=== PATIENT | female | born 1940 | race Caucasian/White ===

== ENCOUNTER 2019-03-30 11:00 | Outpatient (CLI) | payer BC, MEDICARE, SELFPAY ==
--- NOTE | 2019-03-30 11:11 | XR_ITS ---
WS: [id number] LEFT KNEE: 3 VIEW(S) TECHNIQUE: AP, oblique(s) and lateral. HISTORY: KNEE JOINT PAIN LEFT COMPARISON: 10/25/2017 Moderate medial and patellofemoral compartment narrowing with osteophytes. Mild progression since the prior study. Spurring of the tibial spines. No fracture. Small suprapatellar joint effusion. Popliteal artery calcifications. XR/XR knee LT 3V* [id number] IMPRESSION: 1. 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 2. No fracture. 3. Small suprapatellar effusion.
== END 2019-03-30 11:01 | disposition home or self-care (01) ==
LOC: RADWPI 11:09
PROVIDERS: Family Provider Internal Medicine; PCP Internal Medicine; Visit Provider Nurse Practitioner Family
DX: M25.462 Effusion, left knee (principal); M17.12 Unilateral primary osteoarthritis, left knee
CPT/HCPCS: 73562

== ENCOUNTER 2019-09-09 07:04 | Emergency (ER) | payer BC, SELFPAY ==
[2019-09-09] VITALS (8 sets, daily range): BP systolic 122–230; BP diastolic 79–125; PULSE 59–109; RESP 16–20; TEMP 36.5; O2SAT 92–100; BMI 28.5
--- NOTE | 2019-09-09 07:14 | XRR_ITS ---
PROCEDURE INFORMATION: Exam: XR Abdomen, 3 or More Views Exam date and time: 09/09/2019 8:36 AM Age: 79 years old Clinical indication: Nausea and other: Constipation, no bowel movement x 9 day; Prior surgery; Surgery date: 6+ months; Surgery type: Hyst; Patient HX: C/O nausea, constipation-no bowel movement x 9 days, abd pain; Additional info: Abd pain, no bm x 9 days TECHNIQUE: Imaging protocol: XR of the abdomen. Views: 3 or more views. COMPARISON: CT ABDOMEN/PELVIS 09/09/2019 8:47:52 AM FINDINGS: Heart/Mediastinum: The cardiac silhouette is not enlarged. The mediastinal contours are normal. Lungs: No pneumonia or pulmonary edema. Pleural space: No pleural effusion or pneumothorax. Gastrointestinal tract: No dilated gas-filled loops of bowel. No suspicious air-fluid levels. The large amount of stool demonstrated in the rectum on the concurrent CT ABDOMEN/PELVIS is not radiographically evident. However, a moderate amount of stool is present in the proximal colon. Intraperitoneal space: No pneumoperitoneum. Vasculature: The thoracic aorta is atherosclerotic. Bones/joints: There are multilevel bridging osteophytes in the thoracic spine. Multilevel facet arthropathy in the lower lumbar spine. XR/XR acute abdomen series [id number] IMPRESSION: No acute radiographic abnormality. See the separate report for the concurrent CT ABDOMEN/PELVIS.
--- NOTE | 2019-09-09 07:15 | ECG_ITS ---
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 Measurements Intervals [place] Rate: 99 P: 61 [place]: 133 QRS: 29 QRSD: 93 T: 35 QT: 357 QTc: 459 Interpretive Statements SINUS RHYTHM No previous ECG available for comparison Electronically Signed On 09-09-2019 16:48:55 CDT by Sussy Caceres M.D. [id number]
--- NOTE | 2019-09-09 07:16 | PC.NURSE ---
Patient educated that a urine sample is needed bedside commode placed at patients bedside. Patient reports that she is unable to go to the restroom at this time. Will continue to monitor patient.
[2019-09-09] MEDS: LORazepam 2 mg/mL INJ 1 mL 0.5 MG IVP (07:26)
[2019-09-09] MEDS: sodium chloride 0.9% 1,000 ML 999 ML IV ×2 (07:29→10:30)
--- NOTE | 2019-09-09 07:38 | ED_ITS ---
HPI - Abdominal Pain General: Chief Complaint: Abdominal Pain Stated Complaint: ABD PAIN Time Seen by Provider: 09/09/19 07:08 History of Present Illness: HPI narrative: This patient is a 79-year-old female presenting with abdominal pain. She had a total knee replacement on September 02. She says that since that time she has been vomiting and has not been able to keep anything down. She also has not had a bowel movement. Yesterday she started having lower abdominal pain. She has been sitting on the commode since 4:00 this morning straining to have a bowel movement. She has intermittent severe cramping in her lower abdomen. She has not had any prior abdominal surgeries. Her surgery was in [place]. Her left leg is markedly swollen. She is in quite a bit of distress and is not able to give a detailed history on my initial evaluation. MD elicited complaint: abdominal pain Pertinent past history: none Onset (ago): day(s) (2) Pain Consistency: constant and colicky Location: Pelvis Severity: severe Quality: cramping Associated Symptoms: Reports bloating, constipation, GI cramping, nausea and vomiting; Denies chills and fever(s) Review of Systems General: Reports: 10 or more systems reviewed and unremarkable except in HPI and below Const: Reports: malaise; Denies: fever(s), chills or fatigue Eyes: Denies: change in vision ENMT: Denies: odynophagia Card: Denies: chest pain or swelling of feet/ankles Resp: Denies: dyspnea, productive cough or non-productive cough GI: Reports: abdominal pain, nausea, vomiting, constipation, bloating and GI cramping : Denies: flank pain or difficulty voiding Musc: Denies: neck pain or back pain Skin/Breast: Denies: rash Neuro: Denies: headache(s), numbness in extremities or weakness in extremities Miguel/Lymph: Denies: easy bruising or easy bleeding PFSH ED PFSH: Social History Smoking and tobacco status: never smoked Alcohol intake: never Physical Exam Const: COMMON NORMALS: patient oriented x3, no limitations and alert GENERAL APPEARANCE: cooperative, in distress and anxious HENMT: HEAD & SCALP: normal to inspection FACE & SINUS: normal facial exam Eye: GENERAL EYE: appearance normal, both eyes and all related structures Neck/C-Spine: COMMON NORMALS: supple, no meningeal signs and no JVD Chest: COMMONS NORMALS: normal inspection of the chest Resp: COMMON NORMALS: normal respiratory effort, No use of accessory muscles and clear to auscultation bilaterally AUSCULTATION: clear to auscultation bilaterally Cardio: COMMON NORMALS: no JVD, regular rate, regular rhythm and No murmurs present (Cardio) RATE: regular rate RHYTHM: regular rhythm GI: COMMON NORMALS: Normal to inspection, nondistended, normoactive bowel sounds present and non-tender INSPECTION: Yes normal to inspection A USCULTATION: Yes Hypoactive bowel sounds present PALPATION: Yes Firmness to palpation present (GI) and Yes Tenderness to palpation present (GI) (Mild tenderness in the lower quadrants bilaterally) Back/Pelvis: COMMON NORMALS: thoracic and lumbar spine normal to inspection Extremity: NARRATIVE EXTREMITY EXAM: Left lower extremity markedly swollen, with a GABBY hose to the thigh. Dressing over the surgical incision extends from the mid thigh down to the mid lower leg. Neuro: COMMON NORMALS: patient oriented x3, moves all extremities, no focal motor deficits and no sensory deficits noted SENSORIUM/ORIENTATION: Yes alert MENINGEAL SIGNS: Yes no meningeal signs Psych: COMMON NORMALS: mental status grossly normal, cooperative and normal affect Skin: COMMON NORMALS: no rashes or lesions noted and turgor normal GENERAL SKIN EXAM: no rashes or lesions noted and turgor normal Course ED course: Patient was in quite a bit of distress initially. Pain meds helped. Lactate was elevated and a CT was done to rule out serious intra- abdominal pathology, but fortunately only showed fecal impaction. She was manually disimpacted, and then had an enema as well with relief of her symptoms. The lactate was rechecked and was decreasing. I wanted to get an US of her leg, due to swelling, but she had been instructed not to remove the compression stocking and she didn't want the study done. Vital Signs: Vital signs: Vital Signs Temperature 97.7 F 09/09/19 07:16 Pulse Rate 72 09/09/19 14:14 Respiratory Rate 18 09/09/19 14:14 Blood Pressure 185/125 09/09/19 14:14 Pulse Oximetry 100 09/09/19 14:14 MDM - Abdominal Pain Lab Data: Labs: Lab Results 09/09/19 09/09/19 09/09/19 Range/Units 07:30 07:30 07:30 WBC 10.7 H (4.0-10.0) 10^3/ uL RBC 4.13 (4.1-5.3) 10^6/u L Hgb 11.9 (11.5-15.3) g/dL Hct 36.6 L (37.0-47.0) % MCV 88.6 (81-99) fL MCH 28.8 (28.0-34.0) pg MCHC 32.5 (30.0-36.0) g/dL RDW 14.7 (12.1-15.1) % Plt Count 356 (130-400) 10^3/c mm MPV 10.1 (7.4-10.4) fL Neut % (Auto) 79.2 % Lymph % (Auto) 13.8 % [place] % (Auto) 5.0 % Eos % (Auto) 0.6 % Baso % (Auto) 0.7 % Neut # (Auto) 8.45 H (1.8-7.7) 10^3/u L Lymph # (Auto) 1.5 (0.8-4.8) 10^3/u L [place] # (Auto) 0.5 (0.2-0.9) 10^3/u L Eos # (Auto) 0.1 (0.0-0.8) 10^3/u L Baso # (Auto) 0.1 (0.0-0.1) 10^3/u L Nucleated RBC % (a uto) 0 % Nucleated RBCs # 0.0 /100WBC Sodium 137 (136-145) mmol/L Potassium 3.4 L (3.5-5.1) mmol/L Chloride 96 L (98-107) mmol/L Carbon Dioxide 20 L (22-29) mmol/L Anion Gap 24.4 H (5-19) BUN 12 (8-23) mg/dL Creatinine 1.1 H (0.5-0.9) mg/dL Glucose 204 H (65-115) mg/dL Calculated Osmolal ity 286 (285-295) mOsm/k g Lactate 5.1 H* (0.5-2.2) mmol/L Calcium 9.1 (8.5-10.5) mg/dL Total Bilirubin 1.8 H (0.15-1.2) mg/dL AST 113 H (0-32) U/L ALT 113 H (0-33) U/L Alkaline Phosphata se 235 H (35-105) IU/L Total Protein 7.6 (6.6-8.7) g/dL Albumin 3.9 (3.5-5.2) g/dL Globulin 3.7 (1.3-4.6) g/dL Lipase 31 (13-60) U/L 09/09/19 Range/Units 11:53 WBC (4.0-10.0) 10^3/ uL RBC (4.1-5.3) 10^6/u L Hgb (11.5-15.3) g/dL Hct (37.0-47.0) % MCV (81-99) fL MCH (28.0-34.0) pg MCHC (30.0-36.0) g/dL RDW (12.1-15.1) % Plt Count (130-400) 10^3/c mm MPV (7.4-10.4) fL Neut % (Auto) % Lymph % (Auto) % [place] % (Auto) % Eos % (Auto) % Baso % (Auto) % Neut # (Auto) (1.8-7.7) 10^3/u L Lymph # (Auto) (0.8-4.8) 10^3/u L [place] # (Auto) (0.2-0.9) 10^3/u L Eos # (Auto) (0.0-0.8) 10^3/u L Baso # (Auto) (0.0-0.1) 10^3/u L Nucleated RBC % (a uto) % Nucleated RBCs # /100WBC Sodium (136-145) mmol/L Potassium (3.5-5.1) mmol/L Chloride (98-107) mmol/L Carbon Dioxide (22-29) mmol/L Anion Gap (5-19) BUN (8-23) mg/dL Creatinine (0.5-0.9) mg/dL Glucose (65-115) mg/dL Calculated Osmolal ity (285-295) mOsm/k g Lactate 3.4 H (0.5-2.2) mmol/L Calcium (8.5-10.5) mg/dL Total Bilirubin (0.15-1.2) mg/dL AST (0-32) U/L ALT (0-33) U/L Alkaline Phosphata se (35-105) IU/L Total Protein (6.6-8.7) g/dL Albumin (3.5-5.2) g/dL Globulin (1.3-4.6) g/dL Lipase (13-60) U/L EKG Data ^: EKG 1: EKG interpretation time: 07:38 Interpretation: Sinus rhythm, rate 99. Normal intervals. Normal axis. Normal ST segments. Discharge Plan Discharge Patient Disposition: Home, Self-Care Clinical Impression: Fecal impaction of rectum, Obstipation Condition: Stable Prescriptions: New Miralax 17 gram/dose powder 17 gm PO DAILY PRN (Reason: constipation) Qty: 510 RF: 0 magnesium citrate Solution 150 ml PO ONCE PRN (Reason: constipation) Qty: 296 RF: 0 No Action clonidine HCl 0.1 mg tablet 0.1 mg PO TID RF: 0 nifedipine 30 mg tablet extended release 30 mg PO DAILY RF: 0 metoprolol succinate 100 mg tablet extended release 24 hr 100 mg PO DAILY RF: 0 lisinopril 30 mg tablet 30 mg PO DAILY RF: 0 oxycodone 5 mg tablet 5 mg PO Q4H PRN (Reason: Pain) RF: 0 Vitamin D3 25 mcg (1,000 unit) Capsule 25 mcg PO DAILY RF: 0 Eliquis 2.5 mg tablet 2.5 mg PO BID RF: 0 Stool Softener 1 - 2 cap PO PRN RF: 0 Tylenol Extra Strength 500 - 1,000 mg PO PRN RF: 0 Vitamin B-12 1 tab PO DAILY RF: 0 Discharge Orders: Discharge Order (Routine); Ordered 09/09/19 Ordered By: Jacy Garrett Referrals: Edel Celis MD [Primary Care Provider] - Discharge Diet: Usual diet Discharge Activity: Resume usual activity Patient Instructions: Constipation (ED) Activity Restrictions/Additional Instructions: Continue taking her stool softener. Be sure to drink plenty of fluids. Get magnesium citrate which is available [id number]. Drink half the bottle today to help move the rest of the stool out of your bowels. Please also get MiraLAX which is also available [id number] and use that daily until you are off the pain medications. Return to the emergency department if severe abdominal pain, fever, blood in the stool. Discharge Date/Time: 09/09/19 14:18 Coding Level of Care Code ED Telephone Answerer for Shweta Fwjames Exam Comprehensive
[2019-09-09 07:39] LABS: Basophils # 0.1 10^3/uL (0.0-0.1); Basophils % 0.7 %; Eosinophils # 0.1 10^3/uL (0.0-0.8); Eosinophils % 0.6 %; Hematocrit 36.6 % (37.0-47.0); Hemoglobin 11.9 g/dL (11.5-15.3); Lymphocytes # 1.5 10^3/uL (0.8-4.8); Lymphocytes % 13.8 %; Mean Corpuscular HGB Conc 32.5 g/dL (30.0-36.0); Mean Corpuscular Hemoglobin 28.8 pg (28.0-34.0); Mean Corpuscular Volume 88.6 fL (81-99); Mean Platelet Volume 10.1 fL (7.4-10.4); Monocytes # 0.5 10^3/uL (0.2-0.9); Neutrophils # 8.45 10^3/uL (1.8-7.7); Neutrophils % 79.2 %; Nucleated Red Blood Cells % 0 %; Platelet Count 356 10^3/cmm (130-400); Red Blood Count 4.13 10^6/uL (4.1-5.3); Red Cell Distribution Width 14.7 % (12.1-15.1); White Blood Count 10.7 10^3/uL (4.0-10.0)
[2019-09-09] MEDS: dicyclomine 20 mg Tablet PO (07:45)
[2019-09-09 07:54] LABS: Alanine Aminotransferase 113 U/L (0-33); Albumin Level 3.9 g/dL (3.5-5.2); Alkaline Phosphatase 235 IU/L (35-105); Anion Gap 24.4 (5-19); Aspartate Amino Transferase 113 U/L (0-32); Blood Urea Nitrogen 12 mg/dL (8-23); Calcium 9.1 mg/dL (8.5-10.5); Carbon Dioxide 20 mmol/L (22-29); Chloride 96 mmol/L (98-107); Globulin 3.7 g/dL (1.3-4.6); Glucose 204 mg/dL (65-115); Lipase 31 U/L (13-60); Osmolality Calculated 286 mOsm/kg (285-295); Potassium 3.4 mmol/L (3.5-5.1); Sodium 137 mmol/L (136-145); Total Bilirubin 1.8 mg/dL (0.15-1.2); Total Protein 7.6 g/dL (6.6-8.7)
[2019-09-09 07:59] LABS: Lactate (Lactic Acid level) 5.1 mmol/L (0.5-2.2)
--- NOTE | 2019-09-09 08:16 | CTR_ITS ---
PROCEDURE INFORMATION: Exam: CT Abdomen And Pelvis With Contrast Exam date and time: 09/09/2019 8:20 AM Age: 79 years old Clinical indication: Abdominal pain; Acute; Prior surgery; Surgery date: 6+ months; Surgery type: Hyst appy; Additional info: Abdominal pain, elevated lactic acid TECHNIQUE: Imaging protocol: Computed tomography of the abdomen and pelvis with intravenous contrast. Radiation optimization: All CT scans at this facility use at least one of these dose optimization techniques: automated exposure control; mA and/or kV adjustment per patient size (includes targeted exams where dose is matched to clinical indication); or iterative reconstruction. Contrast material: VISI 320; Contrast volume: 95 ml; Contrast route: INTRAVENOUS (IV); COMPARISON: CR XR acute abdomen series [id number] 09/09/2019 8:20 AM RADIATION DOSE METRICS: Total DLP (mGy-cm): 669.62 FINDINGS: Lungs: No acute basilar lung consolidation. Liver: There is fatty change involving the liver parenchyma. Gallbladder and bile ducts: The gallbladder is distended. No calcified gallstones. No gallbladder wall thickening. No pericholecystic fluid or inflammation. No biliary ductal dilatation. Pancreas: No pancreatic mass. No peripancreatic inflammation. No pancreatic ductal dilation. Spleen: Calcified granulomas in a nonenlarged spleen. Adrenals: No adrenal mass. Kidneys and ureters: No hydronephrosis. No nephrolithiasis. Indeterminate 4 mm low-attenuation lesion in the right kidney. Stomach and bowel: Large amount of stool in the rectum. The rectum is distended up to approximately 6.5 cm in diameter. Lesser amount of stool in the colon. No sign of diverticulitis or colitis. No bowel wall thickening or pneumatosis intestinalis. Appendix: Prior appendectomy. Intraperitoneal space: No ascites or pneumoperitoneum. Vasculature: No abdominal aortic aneurysm. No iliac or common femoral artery aneurysm. The mesenteric arteries are patent. The mesenteric, portal, and hepatic veins are patent. Lymph nodes: No enlarged lymph nodes. Bladder: The urinary bladder is small in volume. No bladder calculus. Reproductive: Prior hysterectomy. Bones/joints: Multilevel facet arthropathy in the lower lumbar spine. Soft tissues: No acute soft tissue abnormality. CT/CT abdomen pelvis w con* [id number] IMPRESSION: 1. Rectal fecal impaction. 2. No colonic diverticulosis or colitis. COMMENTS: Consistent with the [employer]'s Incidental Findings Committee white paper (J Am Barbi Radiol 2018): Any incidental renal lesion less than 1.0 cm or classified as too small to characterize, or any incidental cystic renal lesion characterized as simple-appearing, is likely benign. No follow-up imaging is recommended for these lesions per consensus recommendations based on imaging criteria. Radiation Dose CTDIVOL = (mGy): DLP = 669.62 (mGy-cm)
--- NOTE | 2019-09-09 08:25 | PC.NURSE ---
Patient had bowel movement in the hat when trying to provide urine sample.
[2019-09-09] MEDS: ondansetron 2 mg/ML SDV 2 mL 4 MG IVP ×2 (08:33→14:05)
[2019-09-09] MEDS: HYDROmorphone 1 mg/mL INJ 1 mL 0.5 MG IVP ×2 (08:34→14:09)
[2019-09-09] MEDS: iodixanol 320 mg/mL 100mL Btl IV (08:56)
--- NOTE | 2019-09-09 10:55 | PC.NURSE ---
Soap Suds enema administered at this time.
--- NOTE | 2019-09-09 11:34 | NUR.SHIFT ---
Digital disimpaction completed at this time.
--- NOTE | 2019-09-09 11:34 | PC.NURSE ---
Digital impaction done by Dr. Garrett at this time.
[2019-09-09 12:10] LABS: Lactate (Lactic Acid level) 3.4 mmol/L (0.5-2.2)
[2019-09-09] MEDS: cloNIDine 0.1 mg Tablet PO (14:00)
== END 2019-09-09 14:18 | disposition home or self-care (01) ==
PROVIDERS: Emergency Provider Emergency Medicine; PCP Internal Medicine
DX: K56.41 Fecal impaction (principal); Z79.01 Long term (current) use of anticoagulants
CPT/HCPCS: 12345; 36415; 45915; 74022; 74177; 80053; 83605; 83690; 85025; 93005; 96361; 96374; 96375; 96376; 99284; J1170; J2060; J2405; J7030; Q9967

== ENCOUNTER 2020-03-23 10:36 | Outpatient (CLI) | payer BC, MEDICARE, SELFPAY ==
--- NOTE | 2020-03-23 10:44 | USCV_ITS ---
Carla Edward Age: 80 Gender: F : 1940 Exam Date: 03/23/2020 10:57 Ordering Phys: Edel Celis MD Technologist: Lucia Lentz [place] [facility] [place]: H/O LT LEG DVT HISTORY: Lower extremity swelling. PROCEDURES: Venous duplex imaging was performed in only the left lower extremity. The following venous structures were evaluated: common femoral vein, profunda vein, proximal portion of the greater saphenous vein, superficial femoral vein, and the popliteal vein. In addition, the posterior tibial and peroneal trunk were evaluated. FINDINGS: Normal 2-D Doppler and augmentation and compressibility throughout the lower extremity venous structures. Additional imaging through the proximal calf veins also reveals no thrombus. Limited evaluation of the greater saphenous vein is patent with no thrombus. CONCLUSIONS No evidence of left lower extremity DVT. Wiley Vincent MD (Electronically Signed) Final Date: 23 March 2020 12:18 S
== END 2020-03-23 10:37 | disposition home or self-care (01) ==
LOC: RAD 10:38
PROVIDERS: PCP Internal Medicine; Visit Provider Internal Medicine
DX: M79.89 Other specified soft tissue disorders (principal); Z86.718 Personal history of other venous thrombosis and embolism
CPT/HCPCS: 93971

== ENCOUNTER 2020-09-14 07:47 | Outpatient (CLI) | payer BC, MEDICARE, SELFPAY ==
[2020-09-14 08:15] VITALS: BMI 26.4
--- NOTE | 2020-09-14 08:43 | NMCV_ITS ---
NM mague perf SPECT r/s* [id number] Carla Edward Age: 80 Gender: F : 1940 Exam Date: 09/14/2020 08:43 Ordering Phys: Edel Celis MD Technologist: CHIARA Read Exam Location: [facility] Indications: CHEST PAIN STRESS TEST Please see separate stress test report in [facility] for full findings IMAGE PROTOCOL Rest/Stress 1 Lexiscan Day Radiopharmaceutical Dose (mCi) Administration Site Administered by Rest: Tc-99m 10.8 IV Nicol Yu, [employer] Sestamibi Stress:Tc-99m 32.0 IV Nicol Yu, [employer] Sestamibi Rest: 14-Sep-2020 60 Discovery 630 Stress: 14-Sep-2020 30 Discovery 630 0.4mg Lexiscan. Images obtained in supine and prone position. SPECT RESULTS Technical Quality: Excellent Raw Data Analysis: Normal Image Corrections: No attenuation or motion correction applied Summed Stress Score: 0 Summed Rest Score: 0 Summed Difference Score: 0 PERFUSION FINDINGS There is homogenous radiotracer uptake throughout the myocardium. No evidence of ischemia seen. FUNCTIONAL RESULTS (calculated via Gated SPECT) Stress Image LV EF (%): 89 Stress EDV (mL):56 TID: 0.94 Stress ESV (mL):6 FUNCTIONAL FINDINGS: There is normal left ventricular systolic function. IMPRESSIONS 1. Normal myocardial perfusion imaging with no evidence of ischemia. 2. LV systolic function is normal Rene Rausch MD (Electronically Signed) Final Date: 14 September 2020 13:13 S
--- NOTE | 2020-09-14 08:43 | ECG_ITS ---
[facility] Test Date: 2020-09-14 Pat Name: Carla Edward Department: Room: Gender: Female Patients Transporter: : 1940 Requested By: Edel Troncoso Order Number: [id number] Nel MD: Rene Rausch M.D. Interpretive Statements NAME OF STUDY: LEXISCAN SESTAMIBI STRESS TEST INDICATION: [Chest Pain, ] Procedure: At the baseline, the blood pressure was 155/75 mmHg with a heart rate of 57 bpm. The electrocardiogram sinus bradycardia, normal axis with normal ST and T's. The Lexiscan was infused over a period of 20 seconds. A total of 0.4 mg of Lexiscan was infused. The stress phase was continued for a total of 5 minutes. Heart rate was at the end of stress phase was 72 bpm and a blood pressure of 162/75 mmHg. The EKG at the peak infusion revealed since normal sinus rhythm with no significant ST-T wave changes. Sestamibi was injected 20 seconds after the Lexiscan infusion. Blood pressure at the end of recovery phase was 162/75 mmHg with a heart rate of 72 bpm. Conclusion: 1. Normal EKG response to Lexiscan infusion 2. No Lexiscan induced chest pain or cardiac arrhythmia. 3. Normal blood pressure and heart rate response. 4. Sestamibi/sestamibi perfusion scan pending; see separate report. Electronically Signed On 09-21-2020 13:37:14 CDT by Rene Rausch M.D. [email or web address]
[2020-09-14 10:12] VITALS: BP 160/77; PULSE 70
== END 2020-09-14 07:48 | disposition home or self-care (01) ==
LOC: RAD 07:54 → CDL 08:39
PROVIDERS: PCP Internal Medicine; Visit Provider Internal Medicine
DX: R07.9 Chest pain, unspecified (principal)
CPT/HCPCS: 78452; 93017; A9500

== ENCOUNTER 2021-03-08 16:05 | Outpatient (CLI) | payer BC, MEDICARE, SELFPAY ==
--- NOTE | 2021-03-08 16:24 | XR_ITS ---
WS: [id number] XR knee RT 3V* [id number] REASON FOR EXAM: RT. KNEE PAIN FINDINGS: No fracture or focal bone lesion. Moderate to severe narrowing of the medial knee joint space with tibial subchondral sclerosis and mar ginal osteophytes. Mild narrowing of the lateral knee joint space. Mild medial shift of the femur. Moderate narrowing of the patellofemoral joint space with marginal osteophytes. XR/XR knee RT 3V* [id number] IMPRESSION: Osteoarthritis of the right knee as above.
== END 2021-03-08 16:06 | disposition home or self-care (01) ==
LOC: RAD 16:12
PROVIDERS: PCP Internal Medicine; Visit Provider Internal Medicine
DX: M17.11 Unilateral primary osteoarthritis, right knee (principal)
CPT/HCPCS: 73562

== ENCOUNTER 2021-06-09 08:30 | Emergency (ER) | payer BC, MEDICARE, SELFPAY ==
[2021-06-09] VITALS (9 sets, daily range): BP systolic 172–230; BP diastolic 82–100; PULSE 61–72; RESP 17–31; TEMP 37.5; O2SAT 91–96; BMI 24.9
--- NOTE | 2021-06-09 08:53 | XR_ITS ---
WS: [id number] Portable AP upright chest, 06/09/2021 Clinical Data: Hypertension Comparison: Portable chest, 09/01/2009. Findings: No nodules, masses or effusions are seen. The heart is normal. The pulmonary vascularity is not increased. No pneumonia or pneumothorax is seen. The aortic arch and descending thoracic aorta s how calcification and mild tortuosity. There is degenerative change of the thoracic vertebral bodies. XR/XR chest 1V portable [id number] Impression: Atherosclerosis.
--- NOTE | 2021-06-09 08:53 | CTR_ITS ---
PROCEDURE INFORMATION: Exam: CT Neck With Contrast Exam date and time: 06/09/2021 11:55 AM Age: 81 years old Clinical indication: Other: Throat swelling TECHNIQUE: Imaging protocol: Computed tomography images of the neck with contrast. Radiation optimization: All CT scans at this facility use at least one of these dose optimization techniques: automated exposure control; mA and/or kV adjustment per patient size (includes targeted exams where dose is matched to clinical indication); or iterative reconstruction. Contrast material: VISIPAQUE 320; Contrast volume: 75 ml; Contrast route: INTRAVENOUS (IV); COMPARISON: CT head wo con* [id number] 06/09/2021 11:50 AM RADIATION DOSE METRICS: Total DLP (mGy-cm): 420.62 FINDINGS: Nasopharynx: Unremarkable. Oropharynx: Unremarkable. No significant tonsillar enlargement. Hypopharynx: Unremarkable. Larynx: Unremarkable. Normal epiglottis. Retropharyngeal space: Unremarkable. Submandibular/Parotid glands: Normal. Glands are normal in size. Thyroid: Normal. No enlarged or calcified nodules. Lymph nodes: Subcentimeter lymph nodes seen in the neck. 8 mm right supraclavicular lymph node. Trachea: Visualized trachea is unremarkable. Lungs: Mild apical pleural thickening. Bones/joints: Unremarkable. No acute fracture. Soft tissues: Unremarkable. No significant soft tissue swelling. CT/CT neck w con* [id number] IMPRESSION: No acute findings.
--- NOTE | 2021-06-09 08:53 | ECG_ITS ---
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 Measurements Intervals [place] Rate: 62 P: 55 AL: 145 QRS: 53 QRSD: 86 T: 42 QT: 351 QTc: 358 Interpretive Statements SINUS RHYTHM NONSPECIFIC T-WAVE ABNORMALITY Compared to ECG 09/09/2019 07:45:30 T-wave abnormality now present Electronically Signed On 06-09-2021 18:18:06 CDT by Hillary Colon M.D. [id number]
--- NOTE | 2021-06-09 08:53 | CTR_ITS ---
PROCEDURE INFORMATION: Exam: CT Head Without Contrast Exam date and time: 06/09/2021 11:50 AM Age: 81 years old Clinical indication: Altered mental status/memory loss; Confusion or disorientation; Prior surgery; Additional info: Confusion and hypertensive urgency TECHNIQUE: Imaging protocol: Computed tomography of the head without contrast. Radiation optimization: All CT scans at this facility use at least one of these dose optimization techniques: automated exposure control; mA and/or kV adjustment per patient size (includes targeted exams where dose is matched to clinical indication); or iterative reconstruction. COMPARISON: CT head wo con* [id number] 09/05/2016 9:15 AM RADIATION DOSE METRICS: Total DLP (mGy-cm): 736.59 FINDINGS: Brain: Mild atrophy and small vessel ischemic disease is stable. There is no intracranial blood. Cerebral ventricles: No ventriculomegaly. Paranasal sinuses: Mild ethmoidal air cell disease. Mastoid air cells: Visualized mastoid air cells are well aerated. Bones/joints: Unremarkable. No acute fracture. Soft tissues: Unremarkable. CT/CT head wo con* [id number] IMPRESSION: No acute intracranial abnormality.
--- NOTE | 2021-06-09 08:55 | PC.NURSE ---
informed libby riddhi of bp of 230/109 while at bedside. he verbalized understanding no further orders.
--- NOTE | 2021-06-09 08:57 | W.ED.URI ---
HPI - URI/Sore Throat General: Chief Complaint: Shortness of Breath/Dyspnea Stated Complaint: EXCESSIVE NASAL DRAINAGE Time Seen by Provider: 06/09/21 08:41 History of Present Illness: Patient is an 81-year-old female comes to the ED via EMS with throat swelling and nasal drainage. Patient currently lives at home and has a daughter that frequently comes to her house to help take care of her. Symptoms started several days ago. She reports having some throat swelling that makes it difficult sometimes for her to swallow but denies any difficulty breathing. She also reports having white patches on her tongue and throat that she can scrape off with a toothbrush. Sinus congestion and nasal drainage has been going on for several days as well and states she feels a lot of drainage going down her throat. Denies any fever, chills, cough, shortness of breath, chest pain, abdominal pain, nausea/vomiting, bladder or bowel symptoms. Patient's daughter was present in the room and helps provide a little more history. She stated that patient's confusion was her biggest concern. She also gave me some history on patient. Patient has a history of trigeminal neuralgia and had a flareup of it approximately a week ago. She saw her neurologist and is currently being treated. Due to the pain when eating she has had some decreased food and fluid intake over the past several days. Patient's daughter also noted that it appears that patient has been forgetting to take some of her blood pressure medications daily. She noticed that there were couple days in her daily pill container that she had not taken any of her blood pressure meds. Patient admits to forgetting to take her blood pressure medications at night on occasion. Patient occasionally gives answers that are inappropriate and seems a little confused at times. she is alert awake and oriented x3. Associated symptoms: Reports nasal congestion; Deny abdominal pain, chills, chest pain, diarrhea, fever(s), headache(s), nausea or vomiting Review of Systems Const: Denies: fever(s), chills or fatigue Eyes: Denies: change in vision or eye discomfort ENMT: Reports: uvular edema, odynophagia, oral sores (White patches on tongue and throat), nasal discharge, nasal congestion and post nasal drip; Denies: throat pain Card: Denies: chest pain, palpitations, edema, swelling of feet/ankles, dyspnea on exertion or orthopnea Resp: Denies: dyspnea, productive cough or non-productive cough GI: Denies: abdominal pain, nausea, vomiting, diarrhea, constipation or hematochezia : Denies: flank pain, dysuria or hematuria Musc: Denies: neck pain, back pain or extremity swelling Skin/Breast: Denies: rash or new lesions Neuro: Reports: confusion; Denies: headache(s), numbness in extremities or weakness in extremities PFSH ED PFSH: Medical History (Updated 06/10/21 @ 10:25 by DIPESH Davalos) Hypertension Trigeminal neuralgia Surgical History (Updated 06/10/21 @ 10:25 by DIPESH Davalos) No pertinent past surgical history Social History Smoking and tobacco status: never smoked Alcohol intake: never Physical Exam Const: COMMON NORMALS: patient oriented x3 and alert GENERAL APPEARANCE: cooperative HENMT: COMMON NORMALS: normocephalic HEAD & SCALP: normocephalic MOUTH: moist mucous membranes abnormal Details: parched THROAT: posterior oropharynx abnormal edema and other (white patches) and uvular edema Eye: COMMON NORMALS: Equal, round and reactive pupils present, EOMs intact bilaterally and conjunctivae normal CONJUNCTIVA: Yes conjunctivae normal PUPIL: Yes Equal, round and reactive pupils present Neck/C-Spine: COMMON NORMALS: supple GENERAL: Yes normal visual inspection Resp: COMMON NORMALS: normal respiratory effort, No retractions, No use of accessory muscles and clear to auscultation bilaterally AUSCULTATION: clear to auscultation bilaterally Cardio: COMMON NORMALS: regular rate, regular rhythm, S1 normal heart sound present, S2 normal heart sound present, No gallops present (Cardio), No clicks present (Cardio), No murmurs present (Cardio) and Peripheral pulses 2+ throughout RATE: regular rate RHYTHM: regular rhythm HEART SOUNDS: S1 normal heart sound present and S2 normal heart sound present PERIPHERAL PULSES: Peripheral pulses 2+ throughout GI: COMMON NORMALS: Normal to inspection, nondistended, normoactive bowel sounds present, Soft to palpation, non-tender and no masses PALPATION: Yes Soft to palpation : COMMON NORMALS: Yes no CVA tenderness BLADDER/KIDNEY EXAM: Yes no CVA tenderness Back/Pelvis: COMMON NORMALS: no CVA tenderness Extremity: COMMON NORMALS: normal to inspection and no pedal edema Neuro: COMMON NORMALS: patient oriented x3, CN's II-XII intact bilaterally and moves all extremities SENSORIUM/ORIENTATION: Yes alert SPEECH: speech normal OTHER: Patient occasionally seemed confused and would not always answer my questions appropriately. If I readdress the question to her she would then give me correct response. She is awake alert and oriented x3 Skin: GENERAL SKIN EXAM: dry skin Course Vital Signs: Vital signs: Vital Signs Temperature 99.5 F 06/09/21 08:36 Pulse Rate 66 06/09/21 14:30 Respiratory Rate 24 H 06/09/21 14:30 Blood Pressure 172/92 06/09/21 14:30 Pulse Oximetry 91 06/09/21 14:30 MDM - URI/Sore Throat Medical Decision Making Patient is an 81-year-old female who comes to the ED with some throat swelling, nasal drainage and mild confusion. Patient does live at home with daughter. Vitals are stable. Upon exam patient is alert and oriented x3, but does occasionally seem a little confused and does not always answer your questions appropriately but if you readdress the question she will respond accurately. She appears to have some oral candidiasis on her tongue and in the back of her throat along with some edema. Patient says she has no problems breathing. She has elevated blood pressure of 229/100 and the rest of her vitals are stable. Her daughter saw all that some of patient's blood pressure medications had not been taken this week. CBC,CMP were unremarkable. UA showed likely UTI. Troponins negative and EKG showed no acute findings. Chest x-ray showed arthrosclerosis but no other findings. Head CT showed no acute findings and CT of neck showed no acute findings or any airway obstructions. Patient was given IV labetalol here in the ED to help with her blood pressure. At discharge her blood pressure was 172/92. Patient was diagnosed with UTI, hypertensive urgency sinus drainage and oral candidiasis. She was discharged home with a prescription for cefdinir, Flonase and fluconazole oral rinse. Daughter that was present in the ED said she will be with her all weekend and will watch her. I stressed with patient the importance of taking her blood pressure medications as prescribed. Return to ED precautions given. Follow-up with primary care doctor in 3-5 days for reevaluation. Patient understood and agreed with plan. Lab Data I reviewed the patient's lab results. : 06/09/21 09:30 06/09/21 10:44 Radiology Impressions Chest X-Ray 06/09/21 08:53 Impression: Atherosclerosis. Head CT 06/09/21 08:53 IMPRESSION: No acute intracranial abnormality. Neck CT 06/09/21 08:53 IMPRESSION: No acute findings. Laboratory Results WBC 9.4 10^3/uL (4.0-10.0) 06/09/21 09:30 RBC 4.37 10^6/uL (4.1-5.3) 06/09/21 09:30 Hgb 12.6 g/dL (11.5-15.3) 06/09/21 09:30 Hct 38.6 % (37.0-47.0) 06/09/21 09:30 MCV 88.3 fl (81-99) 06/09/21 09:30 MCH 28.8 pg (28.0-34.0) 06/09/21 09:30 MCHC 32.6 g/dL (30.0-36.0) 06/09/21 09:30 RDW 13.8 % (12.1-15.1) 06/09/21 09:30 Plt Count 219 10^3/cmm (130-400) 06/09/21 09:30 MPV 11.0 fL (7.4-10.4) H 06/09/21 09:30 Neut % (Auto) 76.0 % 06/09/21 09:30 Lymph % (Auto) 15.5 % 06/09/21 09:30 [place] % (Auto) 6.9 % 06/09/21 09:30 Eos % (Auto) 0.6 % 06/09/21 09:30 Baso % (Auto) 0.7 % 06/09/21 09:30 Neut # (Auto) 7.14 10^3/uL (1.8-7.7) 06/09/21 09:30 Lymph # (Auto) 1.5 10^3/uL (0.8-4.8) 06/09/21 09:30 [place] # (Auto) 0.7 10^3/uL (0.2-0.9) 06/09/21 09:30 Eos # (Auto) 0.1 10^3/uL (0.0-0.8) 06/09/21 09:30 Baso # (Auto) 0.1 10^3/uL (0.0-0.1) 06/09/21 09:30 Nucleated RBC % (auto) 0 % 06/09/21 09:30 Nucleated RBCs # 0.0 /100WBC 06/09/21 09:30 Sodium 141 mmol/L (136-145) 06/09/21 10:44 Potassium 3.5 mmol/L (3.5-5.1) 06/09/21 10:44 Chloride 103 mmol/L (98-107) 06/09/21 10:44 Carbon Dioxide 25 mmol/L (22-29) 06/09/21 10:44 Anion Gap 16.5 (5-19) 06/09/21 10:44 BUN 20 mg/dL (8-23) 06/09/21 10:44 Creatinine 1.1 mg/dL (0.5-0.9) H 06/09/21 10:44 GFR Calculation Not Reportable 06/09/21 10:44 Glucose 116 mg/dL (65-115) H 06/09/21 10:44 Calculated Osmolality 296 mOsm/kg (285-295) H 06/09/21 10:44 Calcium 8.5 mg/dL (8.5-10.5) 06/09/21 10:44 Total Bilirubin 0.4 mg/dL (0.15-1.2) 06/09/21 10:44 AST 37 U/L (0-32) H 06/09/21 10:44 ALT 103 U/L (0-33) H 06/09/21 10:44 Alkaline Phosphatase 221 IU/L (35-105) H 06/09/21 10:44 Troponin T Baseline 19 ng/L (0-10) H 06/09/21 10:44 Troponin T 120 Minute 19.34 ng/L (0-10) H 06/09/21 13:07 Delta Troponin T 0.34 ABS# (0-10) 06/09/21 13:07 Total Protein 6.3 g/dL (6.6-8.7) L 06/09/21 10:44 Albumin 3.7 g/dL (3.5-5.2) 06/09/21 10:44 Globulin 2.6 g/dL (1.3-4.6) 06/09/21 10:44 Urine Color Yellow (Yellow) 06/09/21 13:13 Urine Appearance Clear (CLEAR) 06/09/21 13:13 Urine pH 5 (5-7) 06/09/21 13:13 Ur Specific [place] 1.020 (1.005-1.030) 06/09/21 13:13 Urine Protein 3+ (Negative) H 06/09/21 13:13 Urine Glucose (UA) Norm (Normal) 06/09/21 13:13 Urine Ketones Negative (Negative) 06/09/21 13:13 Urine Blood 3+ (Negative) H 06/09/21 13:13 Urine Nitrate Negative (Negative) 06/09/21 13:13 Urine Bilirubin Neg (Negative) 06/09/21 13:13 Urine Urobilinogen Norm mg/dL (Negative) 06/09/21 13:13 Ur Leukocyte Esterase Negative (Negative) 06/09/21 13:13 Urine RBC 10-15 /hpf (0-2) H 06/09/21 13:13 Urine WBC 5-10 /hpf (0-5) H 06/09/21 13:13 Ur Squamous Epith Cells 0-4 /hpf (0-5) H 06/09/21 13:13 Amorphous Sediment Not Reportable 06/09/21 13:13 Urine Bacteria 2+ /hpf (NONE) H 06/09/21 13:13 Coronavirus 229E (PCR) Not detected (NOT DETECT) 06/09/21 09:41 Influenza Type A Ag Negative (Negative) 06/09/21 09:41 Influenza Type B Ag Negative (Negative) 06/09/21 09:41 SARS-CoV-2 (PCR) Not detected (NOT DETECT) 06/09/21 09:41 Group A Strep Rapid Negative (Negative) 06/09/21 09:41 EKG Data EKG 1: EKG interpretation date: 06/09/21 EKG interpretation time: 11:18 Interpretation: Normal sinus rhythm, 63 bpm, no ST segment elevation or depression seen. Discharge Plan Discharge Patient Disposition: Home Clinical Impression: Hypertensive urgency, Oral candidiasis, Sinus drainage UTI (urinary tract infection) Qualifiers: Urinary tract infection type: acute cystitis Hematuria presence: with hematuria Qualified Code(s): N30.01 - Acute cystitis with hematuria Condition: Stable Prescriptions: New fluconazole 10 mg/mL suspension for reconstitution 50 mg PO DAILY 14 Days Qty: 70 0RF Flonase Allergy Relief 50 mcg/actuation spray,suspension 1 spray intranasal DAILY PRN (Reason: nasal congestion/drainage) Qty: 16 0RF Rx Instructions: administer into each nostril cefdinir 300 mg capsule 300 mg PO BID 10 Days Qty: 20 0RF No Action nifedipine 30 mg tablet extended release 30 mg PO QAM 0RF metoprolol succinate 100 mg tablet extended release 24 hr 100 mg PO QAM 0RF tramadol 50 mg tablet 50 mg PO Q8H PRN (Reason: Pain) 0RF Tylenol Arthritis Pain 650 mg Tablet Extended Release See Rx Instructions .ROUTE .COMPLEX 0RF Rx Instructions: 1 tab po through the day prn and 1/2 tab at bedtime clonidine HCl 0.2 mg tablet 0.2 mg PO TID 0RF baclofen 10 mg tablet 10 mg PO TID PRN (Reason: Pain) 0RF Super B Complex Tablet 1 tab PO DAILY 0RF lisinopril 40 mg tablet 40 mg PO QAM 0RF Vitamin D3 125 mcg (5,000 unit) Tablet 125 mcg PO DAILY 0RF Eliquis 5 mg tablet 5 mg PO BID 0RF Miralax 17 gram/dose powder 17 gm PO .2-3 TIMES WEEKLY 0RF Discharge Orders: Discharge ED (Routine); Ordered 06/09/21 Ordered By: Delano Rodriguez Referrals: Edel Celis MD [Primary Care Provider] - Discharge Diet: Regular Discharge Activity: Increase activity as tolerated Patient Instructions: Urinary Tract Infection in Women (ED), Oral Candidiasis (ED), Hypertensive Crisis (ED) Activity Restrictions/Additional Instructions: Follow-up with primary care physician in the next 3 to 5 days for reevaluation. Have someone stay with patient over the next 2 days at home to keep an eye on her and make sure she is taking her medications. Take medications as prescribed. Return to the ER or your medical provider if condition worsens. Please read and understand discharge instructions. Thank you for choosing [facility] for your healthcare needs today. Please realize this is an emergency room and that we are providing you with a medical screening exam and this may not be complete and all inclusive of all the testing and or work up that you may need to determine your ailment or severity of your illness. It is very important that you follow up as instructed or that you return to the Emergency Department should you have concerns or if your condition changes or worsens in any way. Coding Level of Care Code ED Food And Beverage Controller for Shweta Hsieh Exam Comprehensive
--- NOTE | 2021-06-09 09:46 | PC.NURSE ---
PT PLACED ON CONTINUOUS SPO2, NIBP, AND CM.
[2021-06-09 10:06] LABS: Basophils # 0.1 10^3/uL (0.0-0.1); Basophils % 0.7 %; Eosinophils # 0.1 10^3/uL (0.0-0.8); Eosinophils % 0.6 %; Hematocrit 38.6 % (37.0-47.0); Hemoglobin 12.6 g/dL (11.5-15.3); Lymphocytes # 1.5 10^3/uL (0.8-4.8); Lymphocytes % 15.5 %; Mean Corpuscular HGB Conc 32.6 g/dL (30.0-36.0); Mean Corpuscular Hemoglobin 28.8 pg (28.0-34.0); Mean Corpuscular Volume 88.3 fl (81-99); Monocytes # 0.7 10^3/uL (0.2-0.9); Monocytes % 6.9 %; Neutrophils # 7.14 10^3/uL (1.8-7.7); Nucleated Red Blood Cells % 0 %; Platelet Count 219 10^3/cmm (130-400); Red Blood Count 4.37 10^6/uL (4.1-5.3); Red Cell Distribution Width 13.8 % (12.1-15.1); White Blood Count 9.4 10^3/uL (4.0-10.0)
[2021-06-09 10:48] LABS: Influenza A by IFA Negative (Negative); Influenza B by IFA Negative (Negative)
[2021-06-09 10:49] LABS: Rapid Strep A Test Negative (Negative)
--- NOTE | 2021-06-09 10:53 | ECG_ITS ---
[facility] Test Date: 2021-06-09 Pat Name: Carla Edward Department: Room: Gender: Female Sensor Operator: : 1940 Requested By: Delano Rodriguez Order Number: [id number] Nel MD: Hillary Colon M.D. Measurements Intervals [place] Rate: 63 P: 58 SC: 145 QRS: 29 QRSD: 97 T: 55 QT: 409 QTc: 419 Interpretive Statements SINUS RHYTHM NONSPECIFIC T-WAVE ABNORMALITY Compared to ECG 06/09/2021 09:06:06 No significant changes Electronically Signed On 06-09-2021 18:24:24 CDT by Hillary Colon M.D. [email or web address]
[2021-06-09 11:19] LABS: Troponin(5th) Baseline 19 ng/L (0-10)
[2021-06-09 11:20] LABS: Alanine Aminotransferase 103 U/L (0-33); Albumin Level 3.7 g/dL (3.5-5.2); Alkaline Phosphatase 221 IU/L (35-105); Anion Gap 16.5 (5-19); Aspartate Amino Transferase 37 U/L (0-32); Blood Urea Nitrogen 20 mg/dL (8-23); Calcium 8.5 mg/dL (8.5-10.5); Carbon Dioxide 25 mmol/L (22-29); Chloride 103 mmol/L (98-107); Globulin 2.6 g/dL (1.3-4.6); Glucose 116 mg/dL (65-115); Osmolality Calculated 296 mOsm/kg (285-295); Potassium 3.5 mmol/L (3.5-5.1); Sodium 141 mmol/L (136-145); Total Bilirubin 0.4 mg/dL (0.15-1.2); Total Protein 6.3 g/dL (6.6-8.7)
--- NOTE | 2021-06-09 11:40 | PC.NURSE ---
while at bedside pt is in nad. pt provided with wet sponge for mouth. pt denies any further needs.
[2021-06-09] MEDS: iodixanol 320 mg/mL 100mL Btl IV (11:56)
[2021-06-09 12:00] LABS: Adenovirus Not Detected (NOT DETECT); Chlamydia Pneumoniae Not Detected (NOT DETECT); Coronavirus 229E,HKU1,NL63,OC4 Not Detected (NOT DETECT); Human Metapneumovirus Not Detected (NOT DETECT); Human Rhinovirus/Enterovirus Not Detected (NOT DETECT); Influenza A Not Detected (NOT DETECT); Influenza A H1 Not Detected (NOT DETECT); Influenza A H1-2009 Not Detected (NOT DETECT); Influenza A H3 Not Detected (NOT DETECT); Influenza B Not Detected (NOT DETECT); Mycoplasma Pneumoniae Not Detected (NOT DETECT); Parainfluenza Virus Type 1 Not Detected (NOT DETECT); Parainfluenza Virus Type 2 Not Detected (NOT DETECT); Parainfluenza Virus Type 3 Not Detected (NOT DETECT); Parainfluenza Virus Type 4 Not Detected (NOT DETECT); Respiratory Syncytial Virus A Not Detected (NOT DETECT); Respiratory Syncytial Virus B Not Detected (NOT DETECT); SARS-COV-2 Not Detected (NOT DETECT)
[2021-06-09] MEDS: labetalol 5 mg/mL SDV 20mL 20 MG IVP (13:07)
[2021-06-09 13:30] LABS: Troponin 5 2HR 19.34 ng/L (0-10)
[2021-06-09 13:32] LABS: Troponin 5 2HR Delta 0.34 ABS# (0-10)
[2021-06-09 13:42] LABS: Add Urine Microscopic? YES; Bilirubin Urine Neg (Negative); Blood Urine 3+ (Negative); Glucose Urine UA Norm (Normal); Ketones Urine Negative (Negative); Leukocyte Esterase Urine Negative (Negative); Nitrate Urine Negative (Negative); Protein Urine 3+ (Negative); Urine Appearance Clear (CLEAR); Urine Color Yellow (Yellow); Urobilinogen Urine Norm (Negative); pH Urine 5 (5-7)
[2021-06-09 13:43] LABS: Add Urine Culture? Yes; Bacteria Urine 2+ /hpf; Squamous Epithelial Cell Urine 0-4 /hpf (0-5)
== END 2021-06-09 15:03 | disposition home or self-care (01) ==
PROVIDERS: Emergency Provider Physician Assistant; PCP Internal Medicine
DX: B37.0 Candidal stomatitis (principal); I16.0 Hypertensive urgency; R09.82 Postnasal drip; N30.01 Acute cystitis with hematuria
CPT/HCPCS: 36415; 70450; 70491; 71045; 80053; 81001; 84484; 85025; 87040; 87077; 87081; 87086; 87186; 87635; 87804; 87880; 93005; 96374; 99284; J3490; Q9967

== ENCOUNTER 2021-09-08 06:00 | Outpatient (RCR) | payer BC, MEDICARE, SELFPAY | END 2021-09-24 23:59 | disposition home or self-care (01) | LOC: SPT 06:00 | PROVIDERS: PCP Internal Medicine; Referring Provider Orthopaedic Surgery; Visit Provider Orthopaedic Surgery | DX: Z47.1 Aftercare following joint replacement surgery (principal); Z96.651 Presence of right artificial knee joint | CPT/HCPCS: 97110; 97140; 97161 ==

== ENCOUNTER 2021-09-25 06:00 | Outpatient (RCR) | payer BC, MEDICARE, SELFPAY | END 2021-10-25 23:59 | disposition home or self-care (01) | LOC: SPT 06:00 | PROVIDERS: PCP Internal Medicine; Referring Provider Orthopaedic Surgery; Visit Provider Orthopaedic Surgery | DX: Z96.651 Presence of right artificial knee joint (principal) | CPT/HCPCS: 97110; 97140 ==

== ENCOUNTER 2021-10-26 06:00 | Outpatient (RCR) | payer BC, MEDICARE, SELFPAY | END 2021-11-24 23:59 | disposition home or self-care (01) | LOC: SPT 06:00 | PROVIDERS: PCP Internal Medicine; Visit Provider Orthopaedic Surgery | DX: Z96.651 Presence of right artificial knee joint (principal) | CPT/HCPCS: 97110 ==

== ENCOUNTER 2021-11-25 06:00 | Outpatient (RCR) | payer BC, MEDICARE, SELFPAY | END 2021-12-15 23:59 | disposition home or self-care (01) | LOC: SPT 06:00 | PROVIDERS: PCP Internal Medicine; Visit Provider Orthopaedic Surgery | DX: Z96.651 Presence of right artificial knee joint (principal) | CPT/HCPCS: 97110 ==

== ENCOUNTER 2022-01-26 07:52 | Outpatient (CLI) | payer BC, MEDICARE, SELFPAY ==
--- NOTE | 2022-01-26 08:18 | MR_ITS ---
WS: [id number] MRI BRAIN WITH AND WITHOUT CONTRAST HISTORY: MEMORY LOSS/ABNORMAL WEIGHT LOSS COMPARISON: CT head 06/09/2021 TECHNIQUE: Multiplanar imaging performed through the brain with MultiHance 15 ml's IV. No acute infarcts are seen. There is extensive T2 and FLAIR signal hyperintensities throughout the wh ite matter. Both patchy and confluent and symmetric. Only mild atrophy. No prior hemorrhage. Prior lacunar infarct RIGHT caudate head. Ventricles and extra-axial spaces are normal. Clivus and pituitary gland are normal. Visualized posterior fossa and brainstem are also normal. Postcontrast images are negative for masses or vascular malformations. Dural venous sinuses are normal. Paranasal sinuses: Well aerated with no significant disease. Mastoid air cells: Normal. Calvarium and scalp: Normal. MR/MR head wo/w con [id number] IMPRESSION: 1. No acute infarct or hemorrhage. 2. No enhancing masses. 3. Moderate to severe small vessel ischemic type changes throughout the white matter. Prior RIGHT caudate head lacunar infarct. 4. Normal ventricles.
[2022-01-26] MEDS: gadobenate dimeglumine 20 mL vial IV (09:46)
== END 2022-01-26 07:53 | disposition home or self-care (01) ==
PROVIDERS: PCP Internal Medicine; Visit Provider Internal Medicine
DX: R63.4 Abnormal weight loss (principal); R41.3 Other amnesia
CPT/HCPCS: 70553; A9577

== ENCOUNTER 2022-07-25 20:14 | Emergency (ER) | payer MEDICARE, SELFPAY ==
[2022-07-25 20:17] VITALS: BP 190/83; PULSE 57; RESP 18; TEMP 36.7; O2SAT 97; BMI 29.2
--- NOTE | 2022-07-25 20:27 | W.ED.WEAKNES ---
HPI - Weakness General: Chief complaint: Weakness Stated complaint: WEAKNESS Time Seen by Provider: 07/25/22 20:27 History of Present Illness: 82-year-old lady presenting with generalized illness. Onset of symptoms gradually 1 week ago. Notes generalized malaise and weakness though no focality. Has chronic left lower extremity edema not worse than baseline and pain is also not worsened by baseline. She has had cough, congestion, no fevers. She does endorse headache. No other specific changes in health, exacerbating, or alleviating factors identified. Onset (ago): week(s) Duration: constant Severity: moderate Associated symptoms: Reports chills, decreased appetite, myalgias and other; Denies fever(s) Review of Systems General: Reports: 10 or more systems reviewed and unremarkable except in HPI and below Const: Reports: chills; Denies: fever(s) PFSH ED PFSH: Medical History Hypertension Trigeminal neuralgia Surgical History No pertinent past surgical history Social History Smoking and tobacco status: never smoked Alcohol intake: never Substance/Drug Use: never Physical Exam Const: COMMON NORMALS: patient oriented x3 and alert GENERAL APPEARANCE: cooperative and well developed HENMT: COMMON NORMALS: normocephalic and atraumatic HEAD & SCALP: normocephalic and atraumatic Eye: COMMON NORMALS: conjunctivae normal CONJUNCTIVA: Yes conjunctivae normal SCLERA: sclerae normal Neck/C-Spine: COMMON NORMALS: supple GENERAL: Yes trachea midline Resp: COMMON NORMALS: normal respiratory effort EFFORT & INSPECTION: Yes able to speak in complete sentences Cardio: COMMON NORMALS: regular rate and regular rhythm RATE: regular rate RHYTHM: regular rhythm GI: COMMON NORMALS: Soft to palpation PALPATION: Yes Soft to palpation and No Tenderness to palpation present (GI) Extremity: GENERAL: Yes normal exam except as noted and Yes edema Neuro: COMMON NORMALS: patient oriented x3, CN's II-XII intact bilaterally, moves all extremities, no focal motor deficits and no sensory deficits noted SENSORIUM/ORIENTATION: Yes alert and No Orientation impaired Psych: COMMON NORMALS: mental status grossly normal and Normal thought process present THOUGHT PROCESS: Normal thought process present Course Vital Signs: Vital signs: Vital Signs Temperature 98.1 F 07/25/22 20:17 Pulse Rate 48 L 07/25/22 23:34 Respiratory Rate 18 07/25/22 23:34 Blood Pressure 162/75 07/25/22 23:34 Pulse Oximetry 99 07/25/22 23:34 Oxygen Delivery Me thod Room Air 07/25/22 23:34 MDM - Weakness Medical Decision Making 82-year-old lady presenting with generalized illness. Mildly ill-appearing though nontoxic. No focal neurologic deficits. No evidence of meningeal signs. Labs notable for no leukocytosis, normocytic anemia, normal platelet count. Metabolic panel with mildly elevated creatinine above baseline. Negative range 2-hour delta troponin. No UTI. Rapid viral testing is negative. Patient improved with IV fluids. Most likely cause of symptoms is viral in nature with mild dehydration. The results of ED evaluation were discussed with the patient including prescriptions and/or symptomatic cares (if applicable) including appropriate and responsible use, followup plan, and return precautions. The patient verbalized understanding and felt safe for discharge. Medical Records I reviewed the patient's medical records. Lab Data I reviewed the patient's lab results. 07/25/22 20:47 07/25/22 20:47 Laboratory Results WBC 6.3 10^3/uL (4.0-10.0) 07/25/22 20:47 RBC 4.07 10^6/uL (4.1-5.3) L 07/25/22 20:47 Hgb 10.8 g/dL (11.5-15.3) L 07/25/22 20:47 Hct 34.2 % (37.0-47.0) L 07/25/22 20:47 MCV 84.0 fl (81-99) 07/25/22 20:47 MCH 26.5 pg (28.0-34.0) L 07/25/22 20:47 MCHC 31.6 g/dL (30.0-36.0) 07/25/22 20:47 RDW 16.2 % (12.1-15.1) H 07/25/22 20:47 Plt Count 203 10^3/cmm (130-400) 07/25/22 20:47 MPV 10.2 fL (7.4-10.4) 07/25/22 20:47 Neut % (Auto) 61.5 % 07/25/22 20:47 Lymph % (Auto) 27.2 % 07/25/22 20:47 [place] % (Auto) 7.4 % 07/25/22 20:47 Eos % (Auto) 2.5 % 07/25/22 20:47 Baso % (Auto) 1.1 % 07/25/22 20:47 Neut # (Auto) 3.89 10^3/uL (1.8-7.7) 07/25/22 20:47 Lymph # (Auto) 1.7 10^3/uL (0.8-4.8) 07/25/22 20:47 [place] # (Auto) 0.5 10^3/uL (0.2-0.9) 07/25/22 20:47 Eos # (Auto) 0.2 10^3/uL (0.0-0.8) 07/25/22 20:47 Baso # (Auto) 0.1 10^3/uL (0.0-0.1) 07/25/22 20:47 Nucleated RBC % (auto) 0 % 07/25/22 20:47 Nucleated RBCs # 0.0 /100WBC 07/25/22 20:47 Sodium 140 mmol/L (136-145) 07/25/22 20:47 Potassium 3.9 mmol/L (3.5-5.1) 07/25/22 20:47 Chloride 105 mmol/L (98-107) 07/25/22 20:47 Carbon Dioxide 24 mmol/L (22-29) 07/25/22 20:47 Anion Gap 14.9 (5-19) 07/25/22 20:47 BUN 20 mg/dL (8-23) 07/25/22 20:47 Creatinine 1.5 mg/dL (0.5-0.9) H 07/25/22 20:47 GFR Calculation Not Reportable 07/25/22 20:47 Glucose 98 mg/dL (65-115) 07/25/22 20:47 Calculated Osmolality 293 mOsm/kg (285-295) 07/25/22 20:47 Calcium 8.7 mg/dL (8.5-10.5) 07/25/22 20:47 Total Bilirubin 0.4 mg/dL (0.15-1.2) 07/25/22 20:47 AST 12 U/L (0-32) 07/25/22 20:47 ALT < 5 U/L (0-33) 07/25/22 20:47 Alkaline Phosphatase 107 U/L (35-105) H 07/25/22 20:47 Troponin T Baseline 18 ng/L (0-10) H 07/25/22 20:47 Troponin T 120 Minute 16.20 ng/L (0-10) H 07/25/22 22:49 Delta Troponin T -1.80 ABS# (0-10) L 07/25/22 22:49 C-Reactive Protein 3.0 mg/L (0.0-4.9) 07/25/22 20:47 Total Protein 6.4 g/dL (6.6-8.7) L 07/25/22 20:47 Albumin 4.0 g/dL (3.5-5.2) 07/25/22 20:47 Globulin 2.4 g/dL (1.3-4.6) 07/25/22 20:47 Procalcitonin 0.02 ng/mL (0-0.5) 07/25/22 20:47 TSH 3.40 uIU/mL (0.27-4.20) 07/25/22 20:47 Urine Color Light yellow (Yellow) 07/25/22 21:25 Urine Appearance Clear (CLEAR) 07/25/22 21:25 Urine pH 6 (5-7) 07/25/22 21:25 Ur Specific [place] 1.010 (1.005-1.030) 07/25/22 21:25 Urine Protein Neg (Negative) 07/25/22 21:25 Urine Glucose (UA) Norm (Normal) 07/25/22 21:25 Urine Ketones Negative (Negative) 07/25/22 21:25 Urine Blood Neg (Negative) 07/25/22 21:25 Urine Nitrate Negative (Negative) 07/25/22 21:25 Urine Bilirubin Neg (Negative) 07/25/22 21:25 Urine Urobilinogen Neg mg/dL (Negative) 07/25/22 21:25 Ur Leukocyte Esterase Negative (Negative) 07/25/22 21:25 Influenza Type A Ag negative (Negative) 07/25/22 20:51 Influenza Type B Ag negative (Negative) 07/25/22 20:51 SARS-CoV-2 Ag (Rapid) negative (Negative) 07/25/22 20:51 Discharge Plan Discharge Patient Disposition: Home Clinical Impression: Generalized weakness, Viral syndrome, Anemia, mild, Dehydration, mild Condition: Stable Prescriptions: No Action nifedipine 30 mg tablet extended release 30 mg PO QAM metoprolol succinate 100 mg tablet extended release 24 hr 100 mg PO QAM Flonase Allergy Relief 50 mcg/actuation spray,suspension 1 spray intranasal DAILY PRN (Reason: nasal congestion/drainage) Qty: 16 0RF Rx Instructions: administer into each nostril tramadol 50 mg tablet 50 mg PO Q8H PRN (Reason: Pain) Tylenol Arthritis Pain 650 mg Tablet Extended Release See Rx Instructions .ROUTE .COMPLEX Rx Instructions: 1 tab po through the day prn and 1/2 tab at bedtime clonidine HCl 0.2 mg tablet 0.2 mg PO TID baclofen 10 mg tablet 10 mg PO TID PRN (Reason: Pain) Super B Complex Tablet 1 tab PO DAILY lisinopril 40 mg tablet 40 mg PO QAM Vitamin D3 125 mcg (5,000 unit) Tablet 125 mcg PO DAILY Eliquis 5 mg tablet 5 mg PO BID Miralax 17 gram/dose powder 17 gm PO .2-3 TIMES WEEKLY Discharge Orders: Discharge ED (Routine); Ordered 07/25/22 Ordered By: Aldo Lorenzo Referrals: Edel Celis MD [Primary Care Provider] - Discharge Diet: Usual diet Discharge Activity: Resume usual activity Patient Instructions: Dehydration (ED), Bradycardia (ED), Viral Syndrome (ED), Weakness (ED) Activity Restrictions/Additional Instructions: Thank you for visiting the emergency department. You were seen and evaluated for generalized symptoms. The exact cause your symptoms is unclear however may be related to viral illness with mild dehydration. Please follow-up with your primary care provider. Please ensure that you are staying hydrated. You may use [id number] medications such as acetaminophen and ibuprofen for pain however please do not exceed the daily recommended dosage as listed on the packaging and please keep in mind that many namebrand medications contain the same active ingredients. Please avoid these medications if previously instructed to do so by another physician due to other underlying medical condition. Return to the emergency department for worsening symptoms, inability to tolerate oral intake, any new neurologic symptoms, or anything else that you are concerned about and feel needs emergency department evaluation. Coding Level of Care Code ED Ballast Cleaning Machine Operator for Shweta Hsieh
[2022-07-25 20:39] VITALS: BP 171/89; PULSE 52; RESP 18; O2SAT 99
[2022-07-25 20:56] LABS: Basophils # 0.1 10^3/uL (0.0-0.1); Basophils % 1.1 %; Eosinophils # 0.2 10^3/uL (0.0-0.8); Eosinophils % 2.5 %; Hematocrit 34.2 % (37.0-47.0); Hemoglobin 10.8 g/dL (11.5-15.3); Lymphocytes # 1.7 10^3/uL (0.8-4.8); Lymphocytes % 27.2 %; Mean Corpuscular HGB Conc 31.6 g/dL (30.0-36.0); Mean Corpuscular Hemoglobin 26.5 pg (28.0-34.0); Mean Platelet Volume 10.2 fL (7.4-10.4); Monocytes # 0.5 10^3/uL (0.2-0.9); Monocytes % 7.4 %; Neutrophils # 3.89 10^3/uL (1.8-7.7); Neutrophils % 61.5 %; Nucleated Red Blood Cells % 0 %; Platelet Count 203 10^3/cmm (130-400); Red Blood Count 4.07 10^6/uL (4.1-5.3); Red Cell Distribution Width 16.2 % (12.1-15.1); White Blood Count 6.3 10^3/uL (4.0-10.0)
[2022-07-25 21:19] LABS: Influenza A by IFA negative (Negative); Influenza B by IFA negative (Negative); SARS Covid-2 Antigen negative (Negative)
[2022-07-25 21:26] LABS: Procalcitonin 0.02 ng/mL (0-0.5)
[2022-07-25 21:32] LABS: Add Urine Microscopic? NO; Charge for UA Resulting for Rev
[2022-07-25] MEDS: sodium chloride 0.9% 1,000 ML 999 ML IV (21:34)
[2022-07-25 21:35] VITALS: BP 167/78; PULSE 46; RESP 18; O2SAT 98
[2022-07-25 21:36] LABS: Bilirubin Urine Neg (Negative); Blood Urine Neg (Negative); Glucose Urine UA Norm (Normal); Ketones Urine Negative (Negative); Leukocyte Esterase Urine Negative (Negative); Nitrate Urine Negative (Negative); Protein Urine Neg (Negative); Urine Appearance Clear (CLEAR); Urine Color Light yellow (Yellow); Urobilinogen Urine Neg (Negative); pH Urine 6 (5-7)
[2022-07-25 21:38] LABS: Alanine Aminotransferase < 5 U/L (0-33); Alkaline Phosphatase 107 U/L (35-105); Anion Gap 14.9 (5-19); Aspartate Amino Transferase 12 U/L (0-32); Blood Urea Nitrogen 20 mg/dL (8-23); Calcium 8.7 mg/dL (8.5-10.5); Carbon Dioxide 24 mmol/L (22-29); Chloride 105 mmol/L (98-107); Glucose 98 mg/dL (65-115); Osmolality Calculated 293 mOsm/kg (285-295); Potassium 3.9 mmol/L (3.5-5.1); Sodium 140 mmol/L (136-145); Total Bilirubin 0.4 mg/dL (0.15-1.2)
[2022-07-25 21:53] LABS: Globulin 2.4 g/dL (1.3-4.6); Total Protein 6.4 g/dL (6.6-8.7)
--- NOTE | 2022-07-25 22:00 | ECG_ITS ---
Test Date: 2022-07-25 Pat Name: Carla Edward Department: Room: Gender: Female Mail Manager: : 1940 Requested By: Aldo Lorenzo Order Number: [id number] Neumann MD: Sussy Caceres M.D. Measurements Intervals Schwertner Rate: 47 P: 75 CA: 159 QRS: 8 QRSD: 86 T: 46 QT: 455 QTc: 406 Interpretive Statements SINUS BRADYCARDIA POSSIBLE ANTERIOR MYOCARDIAL INFARCTION , PROBABLY OLD [30 ms Q WAVE IN V3/V4, OR R < 0.2 mV IN V4] Compared to ECG 06/09/2021 11:17:33 Myocardial infarct finding now present Sinus rhythm no longer present T-wave abnormality no longer present Electronically Signed On 07-26-2022 7:19:05 CDT by Sussy Caceres M.D. [id number]
[2022-07-25 22:14] VITALS: BP 160/74; PULSE 52; O2SAT 99
[2022-07-25 22:26] LABS: Troponin(5th) Baseline 18 ng/L (0-10)
[2022-07-25 23:34] VITALS: BP 162/75; PULSE 48; RESP 18; O2SAT 99
== END 2022-07-25 23:47 | disposition home or self-care (01) ==
PROVIDERS: Emergency Provider Emergency Medicine; PCP Internal Medicine
DX: R53.1 Weakness (principal); B34.9 Viral infection, unspecified; D64.9 Anemia, unspecified; E86.0 Dehydration; Z79.01 Long term (current) use of anticoagulants; Z20.822 Contact with and (suspected) exposure to COVID-19; I10 Essential (primary) hypertension
CPT/HCPCS: 36415; 80053; 81003; 84145; 84443; 84484; 85025; 86140; 87426; 87804; 93005; 99285; J7030

== ENCOUNTER 2022-11-22 09:40 | Outpatient (CLI) | payer MEDICARE, SELFPAY ==
--- NOTE | 2022-11-22 09:51 | ECG_ITS ---
[facility] Test Date: 2022-11-22 Pat Name: Carla Edward Department: Room: Gender: Female Client Support Administrator: : 1940 Requested By: Edel Troncoso Order Number: [id number] Nel MD: Hillary Colon M.D. Interpretive Statements NAME OF STUDY: LEXISCAN SESTAMIBI STRESS TEST INDICATION: Chest Pain, PROCEDURE: At the baseline, the EKG revealed sinus bradycardia. Poor R wave progression. Nonspecific ST-T changes. The baseline heart was 52 bpm with a blood pressue of 159/77 mm of Hg Lexiscan was infused over a period of 20 seconds. A total of 0.4 milligrams of Lexiscan was infused. The stress phase was continued for a total of 5 minutes. Heart rate at the end of the stress phase was 70 bpm with a blood pressure 143/73 mm of Hg. The EKG at the peak infusion revealed no significant changes. Sestamibi was injected 20 seconds after the Lexiscan infusion. Heart rate at the end of the recovery phase was 67 bpm with a blood pressure of 137/69 mm of Hg. CONCLUSION: 1. No significant EKG changes with the LexiScan infusion 2. No LexiScan induced chest pain or cardiac arrhythmia 3. Normal blood pressure and heart rate response 4. Sestamibi/sestamibi perfusion scan pending; see separate report. Electronically Signed On 11-22-2022 23:55:55 CDT by Hillary Colon M.D. [id number]
--- NOTE | 2022-11-22 09:51 | NMCV_ITS ---
NM mague perf SPECT r/s* [id number] Carla Edward Age: 82 Gender: F : 1940 Exam Date: 11/22/2022 10:41 Ordering Phys: Edel Celis MD Technologist: CHIARA Read Exam Location: [facility] Indications: CHEST PAIN STRESS TEST Please see separate stress test report in [facility] for full findings IMAGE PROTOCOL Rest/Stress 1 Lexiscan Day Radiopharmaceutical Dose (mCi) Administration Site Administered by Rest: Tc-99m 10.6 IV CHIARA Quinn Sestamibi Stress:Tc-99m 32.5 IV CHIARA Quinn Sestamibi Rest: 22-Nov-2022 60 Discovery 630 Stress: 22-Nov-2022 30 Discovery 630 0.4mg Lexiscan. Images obtained in supine and prone position. SPECT RESULTS Technical Quality: Excellent Raw Data Analysis: Normal Image Corrections: No attenuation or motion correction applied Summed Stress Score: 0 Summed Rest Score: 0 Summed Difference Score: 0 PERFUSION FINDINGS Fairly uniform myocardial tracer uptake with no significant perfusion abnormalities. FUNCTIONAL RESULTS (calculated via Gated SPECT) Stress Image LV EF (%): 90 Stress EDV (mL):60 TID: 1.09 Stress ESV (mL):6 FUNCTIONAL FINDINGS: Segmental wall motion analysis revealing no gross wall motion abnormalities IMPRESSIONS 1. Fairly uniform myocardial tracer uptake with no significant perfusion abnormalities 2. Normal LV ejection fraction of 90%. 3. LV wall motion analysis revealing no gross wall motion abnormalities. 4. Normal LV volume. Low probability for coronary ischemia, based on the above findings No similar previous studies are available for comparison Dr Hillary Colon MD [facility] (Electronically Signed) Final Date: 22 November 2022 17:30 S
[2022-11-22 10:02] VITALS: BMI 28.7
[2022-11-22] MEDS: regadenoson 0.4 Mg/5 ml Syringe IVP (11:21)
[2022-11-22 11:37] VITALS: BP 140/73; PULSE 68
== END 2022-11-22 09:41 | disposition home or self-care (01) ==
PROVIDERS: PCP Internal Medicine; Visit Provider Internal Medicine
DX: R07.9 Chest pain, unspecified (principal)
CPT/HCPCS: 36415; 78452; 93017; 96374; A9500; J2785

== ENCOUNTER → 2023-06-07 10:31 | Outpatient (BNVA) | payer MEDICARE, SELFPAY | PROVIDERS: PCP Internal Medicine; Visit Provider Student in an Organized Health Care Education/Training Program | DX: M17.11 Unilateral primary osteoarthritis, right knee (principal) | CPT/HCPCS: 20610; 73560; 73565; 99214; J3301 ==

== ENCOUNTER → 2023-09-17 14:14 | Outpatient (BNVA) | payer MEDICARE, SELFPAY | PROVIDERS: PCP Internal Medicine; Visit Provider Physician Assistant | DX: M17.11 Unilateral primary osteoarthritis, right knee (principal); M25.562 Pain in left knee | CPT/HCPCS: 20610; 99213; J3301 ==

== ENCOUNTER 2023-11-11 14:29 | Outpatient (CLI) | payer MEDICARE, SELFPAY ==
--- NOTE | 2023-11-11 14:40 | XRR_ITS ---
PROCEDURE INFORMATION: Exam: XR Lumbosacral Spine Exam date and time: 11/11/2023 2:51 PM Age: 83 years old Clinical indication: Low back pain; Patient HX: Pain in the lower back for years. PT states she can't remember how ling it has been bothering her but its been some time. ; Additional info: Ddd/lumbosacral spine w/radiculopathy TECHNIQUE: Imaging protocol: Radiologic exam of the lumbosacral spine. Views: 4 or 5 views. 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 No evidence of acute fracture or subluxation. The sacrum and coccyx are partially obscured by bowel gas/stool. Bony demineralization compatible with osteopenia or osteoporosis. Soft tissues: Grossly unremarkable. XR/XR lumbar spine min 4V [id number] IMPRESSION: 1. Moderate multilevel spondylosis without evidence of acute fracture or subluxation of the lumbar spine. Consider correlation with follow-up outpatient MRI to evaluate for neural impingement.
== END 2023-11-11 14:30 | disposition home or self-care (01) ==
PROVIDERS: PCP Internal Medicine; Visit Provider Internal Medicine
DX: M51.17 Intervertebral disc disorders with radiculopathy, lumbosacral region (principal); M47.896 Other spondylosis, lumbar region; M25.78 Osteophyte, vertebrae
CPT/HCPCS: 72110

== ENCOUNTER 2023-11-29 11:31 | Outpatient (CLI) | payer MEDICARE, SELFPAY ==
--- NOTE | 2023-11-29 11:33 | US_ITS ---
WS: [id number] RENAL ULTRASOUND HISTORY: CHRONIC KIDNEY DZ STAGE 4 COMPARISON: 11/11/2017 TECHNIQUE: 2-D and color Doppler imaging of the kidney submitted. Right kidney: 8.8 cm x 3.8 cm x 3.8 cm. Cortex: 1.2 cm Low normal size kidney. No hydronephrosis or mass. Left kidney: 8.3 cm x 2.7 cm x 4.5 cm. Cortex: 1.2 cm Low normal size kidney. No hydronephrosis or mass. Normal cortex. Aorta: Normal. Urinary Bladder: Normal distention. US/US renal BI* [id number] IMPRESSION: 1. No hydronephrosis or mass identified on today's exam. 2. Low normal size kidneys. Kidneys have very slightly decreased in overall le ngth since 2018.
== END 2023-11-29 11:32 | disposition home or self-care (01) ==
LOC: RAD 11:31
PROVIDERS: PCP Internal Medicine; Visit Provider Internal Medicine
DX: N18.4 Chronic kidney disease, stage 4 (severe) (principal); R09.81 Nasal congestion
CPT/HCPCS: 76770; 87426

== ENCOUNTER → 2023-12-24 10:45 | Outpatient (BNVA) | payer MEDICARE, SELFPAY | PROVIDERS: PCP Internal Medicine; Visit Provider Physician Assistant | DX: M17.11 Unilateral primary osteoarthritis, right knee (principal) | CPT/HCPCS: 20610; 99213; J3301 ==

== ENCOUNTER 2024-01-25 19:31 | Emergency (ER) | payer MEDICARE, SELFPAY ==
[2024-01-25 19:38] VITALS: BP 196/115; PULSE 113; RESP 20; TEMP 36.6; O2SAT 98; BMI 31.1
[2024-01-25 19:57] LABS: Basophils # 0.1 10^3/uL (0.0-0.1); Basophils % 1.2 %; Eosinophils # 0.1 10^3/uL (0.0-0.8); Eosinophils % 1.8 %; Hematocrit 35.6 % (36-47); Lymphocytes # 1.7 10^3/uL (0.8-4.8); Lymphocytes % 28.8 %; Mean Corpuscular HGB Conc 32.3 g/dL (30-55); Mean Corpuscular Hemoglobin 27.6 pg (27-33); Mean Corpuscular Volume 85.4 fl (85-98); Mean Platelet Volume 9.5 fL (7.4-10.4); Monocytes # 0.7 10^3/uL (0.2-0.9); Neutrophils # 3.43 10^3/uL (1.8-7.7); Nucleated Red Blood Cells % 0 %; Platelet Count 276 10^3/cmm (157-399); Red Blood Count 4.17 10^6/uL (3.85-5.65); Red Cell Distribution Width 15.2 % (12.1-15.1); White Blood Count 6.01 10^3/uL (3.29-11.43)
[2024-01-25] MEDS: labetalol 5 mg/mL SDV 20mL 20 MG IVP (20:00)
[2024-01-25] MEDS: amlodipine 10 mg Tablet PO (20:00)
[2024-01-25 20:14] LABS: INR 1.08 (0.8-1.2)
[2024-01-25 20:15] LABS: Partial Thromboplastin Time 32.1 SECONDS (23.9-36.7)
[2024-01-25 20:18] LABS: Alanine Aminotransferase 9 U/L (0-33); Alkaline Phosphatase 131 U/L (35-105); Anion Gap 16.9 (5-19); Aspartate Amino Transferase 16 U/L (0-32); Blood Urea Nitrogen 17 mg/dL (8-23); Calcium 9.2 mg/dL (8.5-10.5); Carbon Dioxide 21 mmol/L (22-29); Chloride 107 mmol/L (98-107); Creatinine Clr Calc Pharmacy 35.2295; Globulin 2.7 g/dL (1.3-4.6); Glucose 129 mg/dL (65-115); Osmolality Calculated 295 mOsm/kg (285-295); Potassium 3.9 mmol/L (3.5-5.1); Sodium 141 mmol/L (136-145); Total Bilirubin 0.3 mg/dL (0.15-1.2); Total Protein 6.7 g/dL (6.6-8.7)
[2024-01-25 20:30] VITALS: BP 145/91
[2024-01-25] MEDS: oxymetazoline 0.05% Nasal Spray 15 mL 2 SPRAY NOSTRIL-L (20:35)
[2024-01-25] MEDS: gelatin 12-7 mm Sponge 1 EACH TOPICAL (20:35)
[2024-01-25] MEDS: midazolam 1 mg/mL INJ 2 mL IVP (20:36)
[2024-01-25 21:00] VITALS: BP 130/85; PULSE 75; RESP 18; O2SAT 97
--- NOTE | 2024-01-25 21:02 | ED_ITS ---
HPI - Epistaxis 2 General: Chief complaint: Epistaxis Stated complaint: nose bleed Time Seen by Provider: 01/25/24 19:34 History of Present Illness: 84-year-old female with a history of lef t-sided nosebleed for the last couple of hours prior to arrival. She could not get it to stop at home. She is anticoagulated. She is hypertensive as well. She says she is anxious about her nosebleed. She has had to be packed in the past. She denies trauma. Related Data Home Medications Medication Instructions Recorded Confirmed nifedipine 30 mg tablet,extended 30 mg PO QAM 03/24/19 12/24/23 release metoprolol succinate 100 mg 100 mg PO QAM 09/09/19 12/24/23 tablet,extended release 24 hr acetaminophen 650 mg See Rx Instructions .Route .COMPLEX 06/09/21 12/24/23 tablet,extended release (Tylenol Arthritis Pain) apixaban 5 mg tablet (Eliquis) 5 mg PO BID 06/09/21 12/24/23 baclofen 10 mg tablet 10 mg PO TID PRN Pain 06/09/21 12/24/23 cholecalciferol (vitamin D3) 125 125 mcg PO DAILY 06/09/21 12/24/23 mcg (5,000 unit) tablet (Vitamin D3) clonidine HCl 0.2 mg tablet 0.2 mg PO TID 06/09/21 12/24/23 lisinopril 40 mg tablet 40 mg PO QAM 06/09/21 12/24/23 polyethylene glycol 3350 17 17 gm PO .2-3 TIMES WEEKLY 06/09/21 12/24/23 gram/dose oral powder (Miralax) tramadol 50 mg tablet 50 mg PO Q8H PRN Pain 06/09/21 12/24/23 vitamin B complex 1 tab PO DAILY 06/09/21 11/29/23 Previous Rx's Medication Instructions Recorded fluticasone propionate 50 1 spray intranasal DAILY PRN nasal 06/09/21 mcg/actuation nasal congestion/drainage #16 grams spray,suspension (Flonase Allergy Relief) Allergies Allergy/AdvReac Type Severity Reaction Status Date / Time carbamazepine [From Tegretol] Allergy Unknown Verified 12/24/23 11:00 [facility] ED 2 PFSH: Medical History Hypertension Trigeminal neuralgia Surgical History No pertinent past surgical history Social History Smoking and tobacco/nicotine status: unknown if used tobacco/nicotine Alcohol intake: never Substance/Drug Use: never Physical Exam 2 Const: GENERAL APPEARANCE: cooperative, anxious and frail appearing (Mildly) HENMT: COMMON NORMALS: normocephalic and Normal external nose present HEAD & SCALP: normocephalic FACE & SINUS: normal facial exam, sinuses nontender and face symmetric; no edema NOSE: Normal external nose present and Epistaxis present (Left anterior) MOUTH: Normal oral and palatal mucosa present THROAT: posterior oropharynx normal Eye: COMMON NORMALS: Equal, round and reactive pupils present and EOMs intact bilaterally PUPIL: Yes Equal, round and reactive pupils present Resp: COMMON NORMALS: normal respiratory effort, No retractions, No use of accessory muscles and clear to auscultation bilaterally AUSCULTATION: clear to auscultation bilaterally Cardio: COMMON NORMALS: regular rate and regular rhythm RATE: regular rate RHYTHM: regular rhythm Procedures Epistaxis Control Time Out Performed: No Nostril: left Nose Prepped With: oxymetazoline Direct Inspection: yes and anterior source identified Clots Removed by: blowing nose Cautery Used: none Device Inserted: other (gel foam soaked in afrin) Patient Tolerated Procedure: well and no complications Course 2 Vital Signs: Vital signs: Vital Signs Temperature 98 F 01/25/24 19:38 Pulse Rate 78 01/25/24 23:17 Respiratory Rate 20 H 01/25/24 23:17 Blood Pressure 156/89 01/25/24 23:17 Pulse Oximetry 97 01/25/24 23:17 MDM - Epistaxis Medical Decision Making Blood pressure more controlled on labetalol, amlodipine, and anxiety medication. Bleeding is now stopped after packing with Gelfoam, soaked in Afrin. She will hold her Eliquis for 48 hours. She will pull the packing in 48 hours. Primary care follow-up. Return for repeat bleeding. Coags are normal. Hemoglobin is 11.5. Lab Data 01/25/24 19:50 01/25/24 19:50 Laboratory Results WBC 6.01 10^3/uL (3.29-11.43) 01/25/24 19:50 RBC 4.17 10^6/uL (3.85-5.65) 01/25/24 19:50 Hgb 11.50 g/dL (11.27-16.99) 01/25/24 19:50 Hct 35.6 % (36-47) L 01/25/24 19:50 MCV 85.4 fl (85-98) 01/25/24 19:50 MCH 27.6 pg (27-33) 01/25/24 19:50 MCHC 32.3 g/dL (30-55) 01/25/24 19:50 RDW 15.2 % (12.1-15.1) H 01/25/24 19:50 Plt Count 276 10^3/cmm (157-399) 01/25/24 19:50 MPV 9.5 fL (7.4-10.4) 01/25/24 19:50 Neut % (Auto) 57.0 % 01/25/24 19:50 Lymph % (Auto) 28.8 % 01/25/24 19:50 [place] % (Auto) 11.0 % 01/25/24 19:50 Eos % (Auto) 1.8 % 01/25/24 19:50 Baso % (Auto) 1.2 % 01/25/24 19:50 Neut # (Auto) 3.43 10^3/uL (1.8-7.7) 01/25/24 19:50 Lymph # (Auto) 1.7 10^3/uL (0.8-4.8) 01/25/24 19:50 [place] # (Auto) 0.7 10^3/uL (0.2-0.9) 01/25/24 19:50 Eos # (Auto) 0.1 10^3/uL (0.0-0.8) 01/25/24 19:50 Baso # (Auto) 0.1 10^3/uL (0.0-0.1) 01/25/24 19:50 Nucleated RBC % (auto) 0 % 01/25/24 19:50 Nucleated RBCs # 0.0 /100WBC 01/25/24 19:50 PT 14.30 SECONDS (12.1-14.9) 01/25/24 19:50 INR 1.08 (0.8-1.2) 01/25/24 19:50 APTT 32.1 SECONDS (23.9-36.7) 01/25/24 19:50 Sodium 141 mmol/L (136-145) 01/25/24 19:50 Potassium 3.9 mmol/L (3.5-5.1) 01/25/24 19:50 Chloride 107 mmol/L (98-107) 01/25/24 19:50 Carbon Dioxide 21 mmol/L (22-29) L 01/25/24 19:50 Anion Gap 16.9 (5-19) 01/25/24 19:50 BUN 17 mg/dL (8-23) 01/25/24 19:50 Creatinine 1.1 mg/dL (0.5-0.9) H 01/25/24 19:50 GFR Calculation Not Reportable 01/25/24 19:50 Glucose 129 mg/dL (65-115) H 01/25/24 19:50 Calculated Osmolality 295 mOsm/kg (285-295) 01/25/24 19:50 Calcium 9.2 mg/dL (8.5-10.5) 01/25/24 19:50 Total Bilirubin 0.3 mg/dL (0.15-1.2) 01/25/24 19:50 AST 16 U/L (0-32) 01/25/24 19:50 ALT 9 U/L (0-33) 01/25/24 19:50 Alkaline Phosphatase 131 U/L (35-105) H 01/25/24 19:50 Total Protein 6.7 g/dL (6.6-8.7) 01/25/24 19:50 Albumin 4.0 g/dL (3.5-5.2) 01/25/24 19:50 Globulin 2.7 g/dL (1.3-4.6) 01/25/24 19:50 No radiology studies performed this visit Discharge Plan Discharge Patient Disposition: Home Clinical Impression: Acute anterior epistaxis, Hypertension Condition: Stable Prescriptions: No Action nifedipine 30 mg tablet extended release 30 mg PO QAM metoprolol succinate 100 mg tablet extended release 24 hr 100 mg PO QAM Flonase Allergy Relief 50 mcg/actuation spray,suspension 1 spray intranasal DAILY PRN (Reason: nasal congestion/drainage) Qty: 16 0RF Rx Instructions: administer into each nostril tramadol 50 mg tablet 50 mg PO Q8H PRN (Reason: Pain) Tylenol Arthritis Pain 650 mg Tablet Extended Release See Rx Instructions .ROUTE .COMPLEX Rx Instructions: 1 tab po through the day prn and 1/2 tab at bedtime clonidine HCl 0.2 mg tablet 0.2 mg PO TID baclofen 10 mg tablet 10 mg PO TID PRN (Reason: Pain) Super B Complex Tablet 1 tab PO DAILY lisinopril 40 mg tablet 40 mg PO QAM Vitamin D3 125 mcg (5,000 unit) Tablet 125 mcg PO DAILY Eliquis 5 mg tablet 5 mg PO BID Miralax 17 gram/dose powder 17 gm PO .2-3 TIMES WEEKLY Discharge Orders: Discharge ED (Routine); Ordered 01/25/24 Ordered By: Erich Whitman Referrals: Edel Celis MD [Primary Care Provider] - 1-3 days Patient Instructions: Opioid Safety, Pain Management Activity Restrictions/Additional Instructions: Do not take your Eliquis for the next 48 hours. Resume at that point. Take your blood pressure medication when you get home and watch your blood pressure closely. If the packing in your nose does not fall out within 48 hours, it may be removed at that point. You may need help removing it. Do not blow your nose harshly for the next 3 to 4 days. Return for any rebleeding or other problems. Coding Level of Care Code ED Harnessmaker for Shweta Hsieh
[2024-01-25 21:56] VITALS: BP 154/90; PULSE 74; RESP 20; O2SAT 97
[2024-01-25 23:17] VITALS: BP 156/89; PULSE 78; RESP 20; O2SAT 97
== END 2024-01-25 23:18 | disposition home or self-care (01) ==
PROVIDERS: Emergency Provider Emergency Medicine; PCP Internal Medicine
DX: R04.0 Epistaxis (principal); I10 Essential (primary) hypertension; Z79.01 Long term (current) use of anticoagulants
CPT/HCPCS: 80053; 85025; 85610; 85730; 96374; 96375; 99284; J2250; J3490

== ENCOUNTER → 2024-03-26 10:50 | Outpatient (BNVA) | payer MEDICARE, SELFPAY | PROVIDERS: PCP Internal Medicine; Visit Provider Physician Assistant | DX: M17.11 Unilateral primary osteoarthritis, right knee (principal) | CPT/HCPCS: 20610; 73560; 73565; 99213; J3301 ==

== ENCOUNTER → 2024-06-26 11:00 | Outpatient (BNVA) | payer MEDICARE, SELFPAY | PROVIDERS: PCP Internal Medicine; Visit Provider Physician Assistant | DX: M17.11 Unilateral primary osteoarthritis, right knee (principal) | CPT/HCPCS: 20610; 99213; J3301; J9999 ==

== ENCOUNTER 2024-09-14 15:52 | Outpatient (CLI) | payer MEDICARE, MEDICAID, SELFPAY ==
--- NOTE | 2024-09-14 16:02 | USCV_ITS ---
Carla Edward Age: 84 Gender: F : 1940 Exam Date: 09/14/2024 16:07 Ordering Phys: Kirstie Cam Technologist: MARVIN Exam Location: [facility] [place] Indication: edema HISTORY: Lower extremity edema. PROCEDURES: Venous duplex imaging was performed in only the left lower extremity. Serial compression, augmentation maneuvers, and spectral Doppler flow evaluation were performed. FINDINGS: Normal 2-D Doppler and augmentation and compressibility throughout the lower extremity venous structures. Additional imaging through the proximal calf veins also reveals no thrombus. Limited evaluation of the greater saphenous vein is patent with no thrombus. Examination was technically limited due to body habitus. CONCLUSIONS Technically limited exam but no DVT seen. Dr. Devika Sofia DO (Electronically Signed) Final Date: 15 September 2024 07:59 S
== END 2024-09-14 15:53 | disposition home or self-care (01) ==
PROVIDERS: PCP Internal Medicine; Visit Provider Nurse Practitioner Family
DX: R60.0 Localized edema (principal)
CPT/HCPCS: 93971

== ENCOUNTER → 2024-10-07 13:42 | Outpatient (BNVA) | payer OTHER, MEDICAID, SELFPAY | PROVIDERS: PCP Internal Medicine; Visit Provider Physician Assistant | DX: M17.11 Unilateral primary osteoarthritis, right knee (principal) | CPT/HCPCS: 20610; 99213; J3301; J9999 ==